=== PATIENT | male | born 1930 | race Caucasian/White ===

== ENCOUNTER 2016-09-29 19:21 | Observation (INO) | payer MEDICARE, BC ==
[~2016-09-29 19:21] MED LIST: ADULT LOW DOSE81 M1 PO; ALTACE PO; BAYER ADVANCED500 M1 PO; COLACE100 M1 PO; COREG3.125 M1 PO; COREG3.125 MG PO; COUMADIN5 M2 PO; COUMADIN5 MG PO; CRESTOR10 MG PO; CRESTOR10 MG/TAB PO; MUCINEX600 M1 PO; MUCINEX600 MG PO; OMEPRAZOLE20 M2 PO; PRILOSEC20 M1 PO; ROXICODONE5 M2 PO; ULTRACET1 TAB PO; ZYLOPRIM300 M1 PO; ZYLOPRIM300 MG PO
[2016-09-29 20:18] LABS: BASO % 0.1 % (0-2); HCT-HEMATOCRIT 36.6 % (36.0-53.5); HGB-HEMOGLOBIN 11.8 gm/dl (13.5-17.0); IMMATURE GRANULOCYTES ABSOLUTE 0.02 tho/cmm (0-0.03); IMMATURE GRANULOCYTES PERCENT 0.2 % (0-0.3); LYMPH % 6.5 % (20-45); LYMPH ABSOLUTE COUNT 0.5 tho/cmm (0.8-4.5); MCH (MEAN CORPUSCULAR HGB) 27.6 pg (28.0-32.0); MCHC MEAN CORPUSCULAR HGB CONC 32.2 % (32.0-36.0); MCV (MEAN CELL VOLUME) 85.7 fl (82.0-96.0); MEAN PLATELET VOLUME 8.3 cmc (9.4-12.4); MONO % 8.1 % (0-12); MONOCYTE ABSOLUTE COUNT 0.7 tho/cmm (0.0-1.2); NEUTROPHIL ABSOLUTE COUNT 6.9 tho/cmm (1.6-8.0); NEUTROPHIL-AUTOMATED 6.9 tho/cmm (1.6-8.0); NEUTROPHILS % 85.1 % (40-80); RED BLOOD COUNT 4.27 mil/cmm (4.40-5.70); RED CELL DISTRIBUTION WIDTH 17.8 % (12.4-16.4); WHITE BLOOD COUNT 8.1 tho/cmm (4.0-10.0)
[2016-09-29 20:24] LABS: INR 1.7 INR (0.9-1.1); PROTHROMBIN TIME 19.6 SECONDS (9.0-13.6)
[2016-09-29 20:30] LABS: ANION GAP 15 mmol/L (0-20); BLOOD UREA NITROGEN 21 mg/dl (6-24); CALCIUM 8.3 mg/dl (8.5-10.5); CARBON DIOXIDE-VENOUS 23 mmol/L (22-32); CHLORIDE 99 mmol/l (96-110); CREATININE 1.48 mg/dl (0.60-1.30); GLUCOSE 114 mg/dL (70-110); POTASSIUM 3.6 mmol/L (3.7-5.1); SODIUM 133 mmol/L (135-145); eGFR VALUE FOR BLACK 49 mL/Min
[2016-09-29 20:38] LABS: PLATELET COUNT 71 tho/cmm (150-450)
[2016-09-30 09:15] LABS: INR 1.6 INR (0.9-1.1); PROTHROMBIN TIME 18.4 SECONDS (9.0-13.6)
[2016-10-01 05:55] LABS: BASO % 0.2 % (0-2); EOSINOPHIL ABSOLUTE COUNT 0.1 tho/cmm (0.0-0.7); HCT-HEMATOCRIT 31.4 % (36.0-53.5); IMMATURE GRANULOCYTES ABSOLUTE 0.02 tho/cmm (0-0.03); IMMATURE GRANULOCYTES PERCENT 0.3 % (0-0.3); LYMPH % 9.4 % (20-45); LYMPH ABSOLUTE COUNT 0.6 tho/cmm (0.8-4.5); MCH (MEAN CORPUSCULAR HGB) 27.5 pg (28.0-32.0); MCHC MEAN CORPUSCULAR HGB CONC 31.8 % (32.0-36.0); MCV (MEAN CELL VOLUME) 86.3 fl (82.0-96.0); MEAN PLATELET VOLUME 8.2 cmc (9.4-12.4); MONO % 9.5 % (0-12); MONOCYTE ABSOLUTE COUNT 0.6 tho/cmm (0.0-1.2); NEUTROPHIL ABSOLUTE COUNT 4.6 tho/cmm (1.6-8.0); NEUTROPHIL-AUTOMATED 4.6 tho/cmm (1.6-8.0); NEUTROPHILS % 78.6 % (40-80); PLATELET COUNT 65 tho/cmm (150-450); RED BLOOD COUNT 3.64 mil/cmm (4.40-5.70); RED CELL DISTRIBUTION WIDTH 17.8 % (12.4-16.4); WHITE BLOOD COUNT 5.9 tho/cmm (4.0-10.0)
[2016-10-01 06:10] LABS: ANION GAP 12 mmol/L (0-20); CALCIUM 8.2 mg/dl (8.5-10.5); CARBON DIOXIDE-VENOUS 25 mmol/L (22-32); CHLORIDE 104 mmol/l (96-110); CREATININE 1.39 mg/dl (0.60-1.30); GLUCOSE 102 mg/dL (70-110); POTASSIUM 3.7 mmol/L (3.7-5.1); SODIUM 137 mmol/L (135-145); eGFR VALUE FOR BLACK 53 mL/Min
[2016-10-01 06:12] LABS: BLOOD UREA NITROGEN 32 mg/dl (6-24)
[2016-10-01] MEDS ORDERED: PERCOCET 5-3251 EACH PO (12:34)
[2016-10-01] MEDS ORDERED: MIRALAX17 G2 PO (12:34)
[2016-11-24] MEDS ORDERED: MOBIC7.5 M2 PO (12:15)
[2016-11-24] MEDS ORDERED: LASIX40 M1 PO (12:15)
[2016-11-24] MEDS ORDERED: POTASSIUM CHLO10 ME2 PO (12:16)
[2016-12-08] MEDS ORDERED: LEVAQUIN750 M1 PO (09:21)
[2016-12-08] MEDS ORDERED: SENNA GEN PO (09:25)
== END 2016-10-01 13:45 | disposition swing bed (61) ==
LOC: EDMED 19:21 → EMR2 09-30 00:24 → 5EB 09-30 01:40
PROVIDERS: Emergency Medicine; Family Medicine; ADMIT Internal Medicine
PROC: 2W3RXYZ Immobilization of Left Lower Leg using Other Device (ICD-10-PCS; principal; 2016-09-29)
DX: S82.002A Unspecified fracture of left patella, initial encounter for closed fracture (principal); I13.0 Hypertensive heart and chronic kidney disease with heart failure and stage 1 through stage 4 chronic kidney disease, or unspecified chronic kidney disease; N18.9 Chronic kidney disease, unspecified; I50.22 Chronic systolic (congestive) heart failure; E78.5 Hyperlipidemia, unspecified; I25.10 Atherosclerotic heart disease of native coronary artery without angina pectoris; Z85.46 Personal history of malignant neoplasm of prostate; K21.9 Gastro-esophageal reflux disease without esophagitis; Z90.49 Acquired absence of other specified parts of digestive tract; W19.XXXA Unspecified fall, initial encounter; Z98.890 Other specified postprocedural states; Z95.1 Presence of aortocoronary bypass graft; Z98.1 Arthrodesis status; Z79.01 Long term (current) use of anticoagulants; Z79.899 Other long term (current) drug therapy; Z88.0 Allergy status to penicillin; Z88.8 Allergy status to other drugs, medicaments and biological substances
CPT/HCPCS: G0378; G8978-GP-CK; G8979-GP-CK; G8980-GP-CK; J7030

== ENCOUNTER 2016-10-13 15:53 | Inpatient (IN) | payer MEDICARE, BC ==
[~2016-10-13 15:53] MED LIST changes: +MIRALAX17 G2 PO; +PERCOCET 5-3251 EACH PO
[2016-10-13] MEDS ORDERED: ALLOPURINOL300 M1 PO (15:58)
[2016-10-13] MEDS ORDERED: ASPIRIN EC81 MG PO (15:58)
[2016-10-13] MEDS ORDERED: COREG3.125 M1 PO (15:59)
[2016-10-13] MEDS ORDERED: OMEPRAZOLE20 M3 PO (15:59)
[2016-10-13] MEDS ORDERED: ROSUVASTATIN CA10 MG PO (16:00)
[2016-10-13] MEDS ORDERED: COUMADIN2.5 M1 PO (16:01)
[2016-10-13] MEDS ORDERED: MS CONTIN15 M1 PO (16:01)
[2016-10-13] MEDS ORDERED: MUCINEX600 M1 PO (16:02)
[2016-10-13] MEDS ORDERED: GAVILAX17 G2 PO (16:02)
[2016-10-13] MEDS ORDERED: PERCOCET 5-3251 EACH PO (16:02)
[2016-10-13 17:24] LABS: BASO % 0.3 % (0-2); EOS % 1.8 % (0-7); EOSINOPHIL ABSOLUTE COUNT 0.1 tho/cmm (0.0-0.7); HCT-HEMATOCRIT 28.5 % (36.0-53.5); HGB-HEMOGLOBIN 9.2 gm/dl (13.5-17.0); IMMATURE GRANULOCYTES ABSOLUTE 0.02 tho/cmm (0-0.03); IMMATURE GRANULOCYTES PERCENT 0.3 % (0-0.3); LYMPH ABSOLUTE COUNT 0.7 tho/cmm (0.8-4.5); MCH (MEAN CORPUSCULAR HGB) 27.5 pg (28.0-32.0); MCHC MEAN CORPUSCULAR HGB CONC 32.3 % (32.0-36.0); MCV (MEAN CELL VOLUME) 85.1 fl (82.0-96.0); MEAN PLATELET VOLUME 8.4 cmc (9.4-12.4); MONO % 9.2 % (0-12); MONOCYTE ABSOLUTE COUNT 0.6 tho/cmm (0.0-1.2); NEUTROPHIL ABSOLUTE COUNT 5.1 tho/cmm (1.6-8.0); NEUTROPHIL-AUTOMATED 5.1 tho/cmm (1.6-8.0); NEUTROPHILS % 77.4 % (40-80); PLATELET COUNT 224 tho/cmm (150-450); RED BLOOD COUNT 3.35 mil/cmm (4.40-5.70); RED CELL DISTRIBUTION WIDTH 17.5 % (12.4-16.4); WHITE BLOOD COUNT 6.5 tho/cmm (4.0-10.0)
[2016-10-13 17:30] LABS: PROTHROMBIN TIME 48.6 SECONDS (9.0-13.6)
[2016-10-13 17:40] LABS: ANION GAP 12 mmol/L (0-20); BLOOD UREA NITROGEN 16 mg/dl (6-24); CALCIUM 7.7 mg/dl (8.5-10.5); CARBON DIOXIDE-VENOUS 27 mmol/L (22-32); CHLORIDE 99 mmol/l (96-110); CREATININE 1.26 mg/dl (0.60-1.30); GLUCOSE 118 mg/dL (70-110); POTASSIUM 4.2 mmol/L (3.7-5.1); SODIUM 134 mmol/L (135-145); eGFR VALUE FOR BLACK 60 mL/Min
[2016-10-14 06:24] LABS: BASO % 0.3 % (0-2); EOS % 2.3 % (0-7); EOSINOPHIL ABSOLUTE COUNT 0.1 tho/cmm (0.0-0.7); HCT-HEMATOCRIT 28.6 % (36.0-53.5); IMMATURE GRANULOCYTES ABSOLUTE 0.01 tho/cmm (0-0.03); IMMATURE GRANULOCYTES PERCENT 0.2 % (0-0.3); LYMPH ABSOLUTE COUNT 0.6 tho/cmm (0.8-4.5); MCHC MEAN CORPUSCULAR HGB CONC 31.5 % (32.0-36.0); MCV (MEAN CELL VOLUME) 85.9 fl (82.0-96.0); MEAN PLATELET VOLUME 8.1 cmc (9.4-12.4); MONO % 9.8 % (0-12); MONOCYTE ABSOLUTE COUNT 0.6 tho/cmm (0.0-1.2); NEUTROPHIL ABSOLUTE COUNT 4.6 tho/cmm (1.6-8.0); NEUTROPHIL-AUTOMATED 4.6 tho/cmm (1.6-8.0); NEUTROPHILS % 77.4 % (40-80); PLATELET COUNT 199 tho/cmm (150-450); RED BLOOD COUNT 3.33 mil/cmm (4.40-5.70); RED CELL DISTRIBUTION WIDTH 17.5 % (12.4-16.4)
[2016-10-14 06:27] LABS: INR 1.8 INR (0.9-1.1); PROTHROMBIN TIME 20.9 SECONDS (9.0-13.6)
[2016-10-14 06:35] LABS: ANION GAP 12 mmol/L (0-20); BLOOD UREA NITROGEN 15 mg/dl (6-24); C-REACTIVE PROTEIN 16.2 mg/dl (0-0.9); CALCIUM 8.1 mg/dl (8.5-10.5); CARBON DIOXIDE-VENOUS 29 mmol/L (22-32); CHLORIDE 98 mmol/l (96-110); CREATININE 1.27 mg/dl (0.60-1.30); GLUCOSE 99 mg/dL (70-110); POTASSIUM 4.6 mmol/L (3.7-5.1); SODIUM 134 mmol/L (135-145); eGFR VALUE FOR BLACK 59 mL/Min
[2016-10-14 07:00] LABS: PROCALCITONIN 0.14 ng/ml (0.05-0.09)
[2016-10-14 07:21] LABS: ESR-ERYTHROCYTE SED RATE >140 mm/hr (0-20)
[2016-10-15 05:29] LABS: BASO % 0.4 % (0-2); EOS % 2.5 % (0-7); EOSINOPHIL ABSOLUTE COUNT 0.2 tho/cmm (0.0-0.7); HCT-HEMATOCRIT 27.5 % (36.0-53.5); HGB-HEMOGLOBIN 8.7 gm/dl (13.5-17.0); IMMATURE GRANULOCYTES ABSOLUTE 0.02 tho/cmm (0-0.03); IMMATURE GRANULOCYTES PERCENT 0.3 % (0-0.3); LYMPH ABSOLUTE COUNT 0.7 tho/cmm (0.8-4.5); MCH (MEAN CORPUSCULAR HGB) 27.1 pg (28.0-32.0); MCHC MEAN CORPUSCULAR HGB CONC 31.6 % (32.0-36.0); MCV (MEAN CELL VOLUME) 85.7 fl (82.0-96.0); MEAN PLATELET VOLUME 8.2 cmc (9.4-12.4); MONOCYTE ABSOLUTE COUNT 0.7 tho/cmm (0.0-1.2); NEUTROPHIL ABSOLUTE COUNT 5.1 tho/cmm (1.6-8.0); NEUTROPHIL-AUTOMATED 5.1 tho/cmm (1.6-8.0); NEUTROPHILS % 75.8 % (40-80); PLATELET COUNT 203 tho/cmm (150-450); RED BLOOD COUNT 3.21 mil/cmm (4.40-5.70); RED CELL DISTRIBUTION WIDTH 17.5 % (12.4-16.4); WHITE BLOOD COUNT 6.7 tho/cmm (4.0-10.0)
[2016-10-15 05:38] LABS: INR 1.4 INR (0.9-1.1)
[2016-10-15 05:46] LABS: PROTHROMBIN TIME 16.2 SECONDS (9.0-13.6)
[2016-10-15 05:47] LABS: ANION GAP 13 mmol/L (0-20); BLOOD UREA NITROGEN 16 mg/dl (6-24); C-REACTIVE PROTEIN 16.8 mg/dl (0-0.9); CALCIUM 7.8 mg/dl (8.5-10.5); CARBON DIOXIDE-VENOUS 29 mmol/L (22-32); CHLORIDE 97 mmol/l (96-110); GLUCOSE 109 mg/dL (70-110); POTASSIUM 4.5 mmol/L (3.7-5.1); SODIUM 134 mmol/L (135-145); eGFR VALUE FOR BLACK 64 mL/Min
[2016-10-15 06:08] LABS: PROCALCITONIN 0.17 ng/ml (0.05-0.09)
[2016-10-16 04:58] LABS: INR 1.6 INR (0.9-1.1); PROTHROMBIN TIME 19.1 SECONDS (9.0-13.6)
[2016-10-16 05:02] LABS: BASO % 0.3 % (0-2); EOS % 1.2 % (0-7); EOSINOPHIL ABSOLUTE COUNT 0.1 tho/cmm (0.0-0.7); HGB-HEMOGLOBIN 6.8 gm/dl (13.5-17.0); IMMATURE GRANULOCYTES ABSOLUTE 0.02 tho/cmm (0-0.03); IMMATURE GRANULOCYTES PERCENT 0.3 % (0-0.3); LYMPH % 6.9 % (20-45); LYMPH ABSOLUTE COUNT 0.4 tho/cmm (0.8-4.5); MCV (MEAN CELL VOLUME) 86.9 fl (82.0-96.0); MEAN PLATELET VOLUME 8.1 cmc (9.4-12.4); MONO % 10.9 % (0-12); MONOCYTE ABSOLUTE COUNT 0.6 tho/cmm (0.0-1.2); NEUTROPHIL ABSOLUTE COUNT 4.6 tho/cmm (1.6-8.0); NEUTROPHIL-AUTOMATED 4.6 tho/cmm (1.6-8.0); NEUTROPHILS % 80.4 % (40-80); PLATELET COUNT 193 tho/cmm (150-450); RED BLOOD COUNT 2.52 mil/cmm (4.40-5.70); RED CELL DISTRIBUTION WIDTH 17.5 % (12.4-16.4); WHITE BLOOD COUNT 5.8 tho/cmm (4.0-10.0)
[2016-10-16 05:05] LABS: HCT-HEMATOCRIT 21.9 % (36.0-53.5); MCHC MEAN CORPUSCULAR HGB CONC 31.1 % (32.0-36.0)
[2016-10-16 20:08] LABS: HGB-HEMOGLOBIN 9.4 gm/dl (13.5-17.0)
[2016-10-17 06:17] LABS: BASO % 0.7 % (0-2); EOS % 5.2 % (0-7); EOSINOPHIL ABSOLUTE COUNT 0.2 tho/cmm (0.0-0.7); HGB-HEMOGLOBIN 8.9 gm/dl (13.5-17.0); IMMATURE GRANULOCYTES ABSOLUTE 0.03 tho/cmm (0-0.03); IMMATURE GRANULOCYTES PERCENT 0.7 % (0-0.3); LYMPH % 8.5 % (20-45); LYMPH ABSOLUTE COUNT 0.4 tho/cmm (0.8-4.5); MCH (MEAN CORPUSCULAR HGB) 27.2 pg (28.0-32.0); MCHC MEAN CORPUSCULAR HGB CONC 32.1 % (32.0-36.0); MCV (MEAN CELL VOLUME) 84.7 fl (82.0-96.0); MEAN PLATELET VOLUME 8.1 cmc (9.4-12.4); MONO % 8.9 % (0-12); MONOCYTE ABSOLUTE COUNT 0.4 tho/cmm (0.0-1.2); NEUTROPHIL ABSOLUTE COUNT 3.5 tho/cmm (1.6-8.0); NEUTROPHIL-AUTOMATED 3.5 tho/cmm (1.6-8.0); PLATELET COUNT 182 tho/cmm (150-450); RED BLOOD COUNT 3.27 mil/cmm (4.40-5.70); RED CELL DISTRIBUTION WIDTH 17.1 % (12.4-16.4); WHITE BLOOD COUNT 4.6 tho/cmm (4.0-10.0)
[2016-10-17 06:19] LABS: INR 1.8 INR (0.9-1.1); PROTHROMBIN TIME 21.2 SECONDS (9.0-13.6)
[2016-10-17 06:32] LABS: ALB/GLOB RATIO 0.3 (0.8-2.0); ALBUMIN 1.4 g/dl (3.5-5.0); ALKALINE PHOSPHATASE 76 U/L (33-138); ALT/SGPT 38 U/L (12-78); ANION GAP 9 mmol/L (0-20); AST/SGOT 48 U/L (10-40); BILIRUBIN,TOTAL 0.6 mg/dl (0.0-1.5); BLOOD UREA NITROGEN 16 mg/dl (6-24); C-REACTIVE PROTEIN 16.1 mg/dl (0-0.9); CALCIUM 8.1 mg/dl (8.5-10.5); CARBON DIOXIDE-VENOUS 30 mmol/L (22-32); CHLORIDE 100 mmol/l (96-110); CREATININE 1.16 mg/dl (0.60-1.30); GLUCOSE 104 mg/dL (70-110); PHOSPHOROUS 3.7 mg/dl (2.5-4.9); POTASSIUM 3.9 mmol/L (3.7-5.1); PREALBUMIN 3.8 mg/dl (20.0-40.0); SODIUM 135 mmol/L (135-145); eGFR VALUE FOR BLACK 66 mL/Min
[2016-10-17 06:44] LABS: HCT-HEMATOCRIT 27.7 % (36.0-53.5)
[2016-10-17 07:01] LABS: PROCALCITONIN 0.16 ng/ml (0.05-0.09)
[2016-10-18 04:32] LABS: BASO % 0.7 % (0-2); EOS % 4.9 % (0-7); EOSINOPHIL ABSOLUTE COUNT 0.3 tho/cmm (0.0-0.7); HCT-HEMATOCRIT 32.2 % (36.0-53.5); HGB-HEMOGLOBIN 10.4 gm/dl (13.5-17.0); IMMATURE GRANULOCYTES ABSOLUTE 0.05 tho/cmm (0-0.03); IMMATURE GRANULOCYTES PERCENT 0.9 % (0-0.3); LYMPH % 15.7 % (20-45); LYMPH ABSOLUTE COUNT 0.9 tho/cmm (0.8-4.5); MCH (MEAN CORPUSCULAR HGB) 27.6 pg (28.0-32.0); MCHC MEAN CORPUSCULAR HGB CONC 32.3 % (32.0-36.0); MCV (MEAN CELL VOLUME) 85.4 fl (82.0-96.0); MEAN PLATELET VOLUME 8.3 cmc (9.4-12.4); MONO % 10.1 % (0-12); MONOCYTE ABSOLUTE COUNT 0.6 tho/cmm (0.0-1.2); NEUTROPHILS % 67.7 % (40-80); PLATELET COUNT 219 tho/cmm (150-450); RED BLOOD COUNT 3.77 mil/cmm (4.40-5.70); WHITE BLOOD COUNT 5.9 tho/cmm (4.0-10.0)
[2016-10-18 04:41] LABS: PROTHROMBIN TIME 24.2 SECONDS (9.0-13.6)
[2016-10-19 05:24] LABS: BASO % 0.4 % (0-2); EOS % 5.3 % (0-7); EOSINOPHIL ABSOLUTE COUNT 0.3 tho/cmm (0.0-0.7); HCT-HEMATOCRIT 29.7 % (36.0-53.5); HGB-HEMOGLOBIN 9.4 gm/dl (13.5-17.0); IMMATURE GRANULOCYTES ABSOLUTE 0.04 tho/cmm (0-0.03); IMMATURE GRANULOCYTES PERCENT 0.8 % (0-0.3); LYMPH % 14.3 % (20-45); LYMPH ABSOLUTE COUNT 0.7 tho/cmm (0.8-4.5); MCH (MEAN CORPUSCULAR HGB) 27.3 pg (28.0-32.0); MCHC MEAN CORPUSCULAR HGB CONC 31.6 % (32.0-36.0); MCV (MEAN CELL VOLUME) 86.3 fl (82.0-96.0); MEAN PLATELET VOLUME 8.3 cmc (9.4-12.4); MONO % 11.6 % (0-12); MONOCYTE ABSOLUTE COUNT 0.6 tho/cmm (0.0-1.2); NEUTROPHIL ABSOLUTE COUNT 3.4 tho/cmm (1.6-8.0); NEUTROPHIL-AUTOMATED 3.4 tho/cmm (1.6-8.0); NEUTROPHILS % 67.6 % (40-80); PLATELET COUNT 186 tho/cmm (150-450); RED BLOOD COUNT 3.44 mil/cmm (4.40-5.70); RED CELL DISTRIBUTION WIDTH 17.2 % (12.4-16.4); WHITE BLOOD COUNT 5.1 tho/cmm (4.0-10.0)
[2016-10-19 05:34] LABS: INR 2.1 INR (0.9-1.1); PROTHROMBIN TIME 24.5 SECONDS (9.0-13.6)
[2016-10-19 05:40] LABS: ANION GAP 11 mmol/L (0-20); BLOOD UREA NITROGEN 14 mg/dl (6-24); C-REACTIVE PROTEIN 13.8 mg/dl (0-0.9); CALCIUM 8.5 mg/dl (8.5-10.5); CARBON DIOXIDE-VENOUS 29 mmol/L (22-32); CHLORIDE 96 mmol/l (96-110); CREATININE 1.18 mg/dl (0.60-1.30); GLUCOSE 97 mg/dL (70-110); POTASSIUM 3.4 mmol/L (3.7-5.1); SODIUM 133 mmol/L (135-145); eGFR VALUE FOR BLACK 65 mL/Min
--- NOTE | 2016-10-19 20:22 | NUR ---
PETE STALEY ROUNDED DURING SHIFT CHANGE, AROUND 0700. THIS RN WENT IN TO ROUND W/ . LOOKED AT WOUND VAC AND THIS RN TOLD THE PA THAT THE INCISION SHOULD BE LOOKED AT AND HE SAID TO LEAVE THE WOUND VAC INTACT AND DR SORIA WILL LOOK AT IT LATER IN THE SHIFT AND TO CHANGE IT AT THAT TIME. ADIA MORTON RN CALLED DR SORIA AROUND 1100 TO NOTIFY MD THAT THE PT HAS D/C ORDERS. DR SORIA ROUNDED BEFORE THE PT DISCHARGED. THIS RN WENT TO ROUND W/ THE MD. THIS RN OFFERED TO TEAR DOWN THE DRESSING FOR THE DR, AND HE SAID NO THAT HE DIDN'T WANT TO SEE THE WOUND AT THAT TIME. NOTIFIED THAT MD THAT THE WOUND/INCISIONAL SITE DIDN'T LOOK GOOD.
[2016-11-24] MEDS ORDERED: MOBIC7.5 M2 PO (12:15)
[2016-11-24] MEDS ORDERED: LASIX40 M1 PO (12:15)
[2016-11-24] MEDS ORDERED: POTASSIUM CHLO10 ME2 PO (12:16)
[2016-12-08] MEDS ORDERED: LEVAQUIN750 M1 PO (09:21)
[2016-12-08] MEDS ORDERED: SENNA GEN PO (09:25)
== END 2016-10-19 14:15 | DRG 464 ==
LOC: EDMED 15:53 → EMR2 20:01 → 5EB 20:05 → ORE 10-15 14:11 → PACU 10-15 16:17 → 5EB 10-15 18:05
PROVIDERS: Emergency Medicine; Family Medicine; Internal Medicine Infectious Disease; Nurse Practitioner; Orthopaedic Surgery Foot and Ankle Surgery; Orthopaedic Surgery Sports Medicine; ADMIT Family Medicine
PROC: 0SPD0JC Removal of Synthetic Substitute from Left Knee Joint, Patellar Surface, Open Approach (ICD-10-PCS; principal; 2016-10-15)
PROC: 0SPD09Z Removal of Liner from Left Knee Joint, Open Approach (ICD-10-PCS; 2016-10-15)
PROC: 0SUW09Z Supplement Left Knee Joint, Tibial Surface with Liner, Open Approach (ICD-10-PCS; 2016-10-15)
PROC: 0MBP0ZZ Excision of Left Knee Bursa and Ligament, Open Approach (ICD-10-PCS; 2016-10-15)
PROC: 0SBD0ZZ Excision of Left Knee Joint, Open Approach (ICD-10-PCS; 2016-10-15)
PROC: 02HV33Z Insertion of Infusion Device into Superior Vena Cava, Percutaneous Approach (ICD-10-PCS; 2016-10-15)
DX: T84.54XA Infection and inflammatory reaction due to internal left knee prosthesis, initial encounter (principal); M00.9 Pyogenic arthritis, unspecified; I47.2 Ventricular tachycardia; I42.9 Cardiomyopathy, unspecified; I11.0 Hypertensive heart disease with heart failure; I50.32 Chronic diastolic (congestive) heart failure; L03.116 Cellulitis of left lower limb; I51.3 Intracardiac thrombosis, not elsewhere classified; B95.1 Streptococcus, group B, as the cause of diseases classified elsewhere; Z91.81 History of falling; I25.10 Atherosclerotic heart disease of native coronary artery without angina pectoris; K21.9 Gastro-esophageal reflux disease without esophagitis; Z95.1 Presence of aortocoronary bypass graft; Z98.1 Arthrodesis status; E78.5 Hyperlipidemia, unspecified; Z85.46 Personal history of malignant neoplasm of prostate; Z79.01 Long term (current) use of anticoagulants; Z88.0 Allergy status to penicillin; Z88.8 Allergy status to other drugs, medicaments and biological substances; I49.3 Ventricular premature depolarization; Z96.651 Presence of right artificial knee joint; Z96.612 Presence of left artificial shoulder joint; Z96.611 Presence of right artificial shoulder joint; M19.90 Unspecified osteoarthritis, unspecified site; M51.36 Other intervertebral disc degeneration, lumbar region; T84.033A Mechanical loosening of internal left knee prosthetic joint, initial encounter; R60.0 Localized edema; I87.2 Venous insufficiency (chronic) (peripheral); D64.9 Anemia, unspecified; E88.09 Other disorders of plasma-protein metabolism, not elsewhere classified
CPT/HCPCS: C1713; C1751; J0171; J0690; J1170; J1200; J1940; J2270; J2795; J3370; J3430; J7050; P9016; P9017